=== PATIENT | male | born 1945 | race Caucasian/White ===

== ENCOUNTER 2019-04-04 17:07 | Emergency (ER) | payer MEDICARE, BC ==
[~2019-04-04] VITALS: Ht 172.7 cm; Wt 77.9 kg
[2019-04-04 17:12] VITALS: BP 136/56
== END 2019-04-04 19:09 | disposition home or self-care (01) ==
LOC: ED 17:23
DX: S61.411A Laceration without foreign body of right hand, initial encounter (principal); Z23 Encounter for immunization; W01.0XXA Fall on same level from slipping, tripping and stumbling without subsequent striking against object, initial encounter; Y93.89 Activity, other specified; Y92.009 Unspecified place in unspecified non-institutional (private) residence as the place of occurrence of the external cause; Y99.8 Other external cause status
CPT/HCPCS: 12001; 12042; 90471; 90715; 99285